=== PATIENT | male | born 1985 | race Caucasian/White ===

== ENCOUNTER 2018-01-18 14:07 | Emergency (ER) | payer OTHER ==
[2018-01-18 14:51] LABS: BASOPHILS 0.1 % (0-2); HEMATOCRIT 44.6 % (42.0-54.0); HEMOGLOBIN 15.8 g/dL (13.5-17.5); IMMATURE GRANULOCYTES 0.2 % (0-5); LYMPHOCYTES 17.4 % (15-50); MCH 31.9 pg (26.0-34.0); MCHC 35.4 g/dL (31.0-37.0); MCV 90.1 fL (80.0-100.0); MEAN PLATELET VOLUME 9.4 fL (7.4-10.4); MONOCYTES 6.3 % (2-11); PLATELET COUNT 192 10x3/uL (130-400); RBC 4.95 10x6/uL (4.20-6.10); RDW 12.3 % (11.5-14.5); WBC 9.7 10x3/uL (4.8-10.8)
[2018-01-18 15:05] LABS: APPEARANCE CLEAR (CLEAR); BILIRUBIN NEGATIVE (NEGATIVE); COLOR YELLOW (YELLOW); GLUCOSE NEGATIVE (NEGATIVE); KETONE NEGATIVE (NEGATIVE); NITRITE NEGATIVE (NEGATIVE); PROTEIN NEGATIVE (NEGATIVE); UROBILINOGEN NORMAL (NORMAL)
[2018-01-18 15:07] LABS: ALBUMIN 4.3 g/dL (3.4-5.0); ANION GAP 12.4 mmol/L (8-16); BILIRUBIN - TOTAL 0.52 mg/dL (0.2-1.3); CALCIUM 9.7 mg/dL (8.5-10.1); CARBON DIOXIDE 28.1 mmol/L (21.0-32.0); CREATININE - SERUM 1.2 mg/dL (0.6-1.3); POTASSIUM - SERUM 3.5 mmol/L (3.5-5.1)
== END 2018-01-18 17:02 | disposition home or self-care (01) ==
LOC: D.ER 14:07
PROVIDERS: Family Medicine
DX: K52.9 Noninfective gastroenteritis and colitis, unspecified (principal); R10.9 Unspecified abdominal pain